=== PATIENT | male | born 1970 | race Caucasian/White ===

== ENCOUNTER 2019-12-16 13:29 | Emergency (ER) | payer BC, OTHER ==
[2019-12-16] MEDS ORDERED: Adacel (T-DAP) 0.5 ML SYRINGE ONE (13:52)
== END 2019-12-16 14:08 | disposition home or self-care (01) ==
LOC: BURERS 13:29
DX: S01.81XA Laceration without foreign body of other part of head, initial encounter (principal); W01.198A Fall on same level from slipping, tripping and stumbling with subsequent striking against other object, initial encounter; Z23 Encounter for immunization
CPT/HCPCS: 12013; 90471; 90715